=== PATIENT | female | born 1980 | race Caucasian/White ===

== ENCOUNTER 2018-02-22 21:28 | Emergency (ER) | payer SELFPAY ==
[2018-02-22 22:00] VITALS: BP 113/72
[2018-02-22] MEDS ORDERED: LOR5/325 PO (22:15)
[2018-02-22] MEDS ORDERED: AMOX-362 PO (22:15)
--- NOTE | 2018-02-22 22:17 | ER Report ---
History and Physical Time Seen By MD: 21:45 Hx. of Stated Complaint: PATIENT STARTED HAVING PAIN IN HER BACK MOLAR ON THE RIGHT BOTTOM ABOUT AN HOUR AGO. PATIENT STATES SHE HAVING TROUBLE SWOLLOWING. HPI/ROS CHIEF COMPLAINT: dental pain HISTORY OF PRESENT ILLNESS: This is a 37 year old female. She has a toot fracture of her right lower 1st molar. Now that tooth is very painful. Worsens with pressure or any hot or cold. Has not seen a dentist yet. Has tried over the counter medications, but still very painful. Some associated swelling. Allergies: Coded Allergies: No Known Drug Allergies (Unverified , 02/22/18) Home Meds Active Scripts Amoxicillin (AMOXICILLIN) 500 Mg Capsule, 1 CAP PO Q8H, #15 CAPSULE 0 Refills Prov:SERGE WALLER MD 02/22/18 Hydrocodone Bit/Acetaminophen (HYDROCODON-ACETAMINOPHEN 5-325) 1 Each Tablet, 1 EACH PO Q4H Y for PAIN, #12 TAB 0 Refills Prov:SERGE WALLER MD 02/22/18 Reviewed Nurses Notes: Yes Constitutional Vital Sign - Last 24 Hours 02/22/18 02/22/18 02/22/18 02/22/18 21:35 21:43 21:58 22:00 Temp 98.3 Pulse 79 64 67 Resp 24 B/P (MAP) 131/82 113/72 (86) Pulse Ox 98 96 96 O2 Delivery Room Air 02/22/18 22:13 Pulse 66 Pulse Ox 94 Physical Exam General Appearance: Alert, no distress. Eyes: Pupils equal and round no pallor or injection. ENT: Mucous membranes are moist. Oral mucosa is normal in appearance. Tender to percussion over right lower 1st molar. Tooth is fractured with a piece missing. Slight swelling over the right mandibular area. Gums are normal. Skin: Warm and dry, no rashes. DIFFERENTIAL DIAGNOSIS: After history and physical exam differential diagnosis was considered for dental pain and fracture. Medical Decision Making ED Course/Re-evaluation ED Course Prescribed Amoxicillin and Lortab. See instructions below. Decision to Disposition Date: February 22, 2018 Decision to Disposition Time: 22:13 Depart Departure Latest Vital Signs Vital Signs Date Time Temp Pulse Resp B/P (MAP) Pulse Ox O2 Delivery O2 Flow Rate FiO2 02/22/18 22:13 66 94 02/22/18 22:00 113/72 (86) 02/22/18 21:35 98.3 24 Room Air Impression: Primary Impression: Fractured tooth Additional Impression: Pain, dental Condition: Condition Unchanged Disposition: HOME OR SELF-CARE New Scripts Amoxicillin (AMOXICILLIN) 500 Mg Capsule 1 CAP PO Q8H, #15 CAPSULE 0 Refills Prov: SERGE WALLER MD 02/22/18 Hydrocodone Bit/Acetaminophen (HYDROCODON-ACETAMINOPHEN 5-325) 1 Each Tablet 1 EACH PO Q4H Y for PAIN, #12 TAB 0 Refills Prov: SERGE WALLER MD 02/22/18 Patient Instructions: Toothache (ED) Additional Instructions: Call and make an appointment with a dentist. Take Ibuprofen 200mg over the counter tablets, take 4 tablets every 8 hours as needed for pain. Take Lortab 5/325, one every 4 hours as needed for pain. Take Amoxicillin 500mg, three times a day. You can try over the counter dental numbing agents as well to help with pain. Problem Qualifiers Primary Impression: Fractured tooth Encounter type: initial encounter SERGE WALLER MD February 22, 2018 22:16
[2018-02-22] MEDS ORDERED: ACET/HYDROC 5/325MG TH ER ONLY 2 TAB/BOTTLE PO ONE (22:20)
== END 2018-02-22 22:24 | disposition home or self-care (01) ==
LOC: ER 21:50
DX: S02.5XXA Fracture of tooth (traumatic), initial encounter for closed fracture (principal)
CPT/HCPCS: 99282